=== PATIENT | male | born 1945 | race Caucasian/White ===

== ENCOUNTER 2020-06-14 11:07 | Inpatient (IN) | payer OTHER ==
[~2020-06-14] VITALS: Ht 172.7 cm; Wt 71.2 kg
[2020-06-14] MEDS ORDERED: DEXAMETHASONE SOD PHOSPHATE 10 MG/ML VIAL IV ONE (11:30)
[2020-06-14] MEDS ORDERED: DEXAMETHASONE SOD PHOSPHATE 10 MG/ML VIAL ONE (11:31)
[2020-06-14 11:38] LABS: ABG BASE EXCESS -2.3 mmol/L; ABG PCO2 29.7 mmHg (35.0-45.0); ABG PH 7.451 (7.350-7.450); ABG PO2 50.4 mmHg (75.0-100.0); AaDO2 632.9 mmHg; MetHb 0.3 % (0.0-1.5); O2Hb 83.9 % (94.0-97.0); SITE, ABG Right Radial; VENT MODE, BG NRB
--- NOTE | 2020-06-14 11:45 | NUR ---
BIB [facility] C/O SOB X 2 WEEKS. vs checked. hooked on monitor seen by md. iv access started blood draw done sent to lab
--- NOTE | 2020-06-14 12:00 | NUR ---
placed on hi flow o2 rt by bedside
[2020-06-14 12:12] LABS: BASOPHILS % (AUTO) 0.1 % (0.0-2.0); EOSINOPHILS % (AUTO) 0.1 % (0.0-6.0); HEMATOCRIT 50 % (39-51); LYMPHOCYTES # (AUTO) 0.5 /CMM (0.8-4.8); LYMPHOCYTES % (AUTO) 2.2 % (20.0-44.0); MEAN CORPUSCULAR HGB CONC 32 g/dl (31.0-36.0); MEAN CORPUSCULAR VOLUME 93 fL (80-96); MONOCYTES # (AUTO) 0.9 /CMM (0.1-1.30); MONOCYTES % (AUTO) 4.4 % (2.0-12.0); NEUTROPHILS # (AUTO) 20.1 /CMM (1.8-8.9); NEUTROPHILS % (AUTO) 93.2 % (43.0-81.0); PLATELET COUNT (AUTO) 203 /CMM (150-450); RED BLOOD CELL COUNT(AUTO) 5.35 MIL/uL (4.5-6.0); WHITE BLOOD COUNT (AUTO) 21.6 K/uL (4.3-11.0)
[2020-06-14 12:45] LABS: CALCIUM, SERUM 8.3 mg/dL (8.5-10.1); CARBON DIOXIDE 23 mmol/L (21-32); CHLORIDE 104 mmol/L (98-107); CREATININE 1.5 mg/dL (0.6-1.3); GLUCOSE 244 mg/dL (74-106); POTASSIUM 5.1 mmol/L (3.5-5.1); SODIUM SERUM 139 mmol/L (136-145); UREA NITROGEN, BLOOD 24 mg/dL (7-18)
[2020-06-14 12:47] LABS: ALANINE AMINOTRANSFERASE 13 U/L (12-78); ALBUMIN 1.8 g/dL (3.4-5.0); ALKALINE PHOSPHATASE 124 U/L (46-116); ASPARTATE AMINOTRANSFERASE 23 U/L (15-37); BILIRUBIN,DIRECT 0.2 mg/dL (0.0-0.2); BILIRUBIN,TOTAL 0.6 mg/dL (0.2-1.0); TOTAL PROTEIN, SERUM 8.6 g/dL (6.4-8.2)
--- NOTE | 2020-06-14 13:27 | NUR ---
received a call from the lab reagrding covid 19 result "negative".
[2020-06-14] MEDS ORDERED: ACETAMINOPHEN ES 500 MG TABLET PO PRN (15:30)
[2020-06-14] MEDS ORDERED: DEXTROSE 50%-WATER 50 ML DISP.SYRIN IV PRN (15:30)
[2020-06-14] MEDS ORDERED: Potassium Chloride 10 MEQ in IV NS 0.9% 1,000 ML IV PRN (15:30)
[2020-06-14] MEDS ORDERED: ZOLPIDEM TARTRATE 5 MG TABLET PO PRN (15:30)
[2020-06-14] MEDS ORDERED: ENOXAPARIN SODIUM 40 MG/0.4 ML DISP.SYRIN SQ SCH (16:00)
[2020-06-14] MEDS ORDERED: IV 1/2NS 1000 ML 1,000 ML IV SCH (16:00)
[2020-06-14] MEDS ORDERED: PANTOPRAZOLE 40 MG TABLET.DR PO ONE (16:18)
[2020-06-14] MEDS ORDERED: ENOXAPARIN SODIUM 40 MG/0.4 ML DISP.SYRIN SQ ONE (16:18)
[2020-06-14] MEDS: PANTOPRAZOLE 40 MG TABLET.DR PO SCH (16:30)
[2020-06-14] MEDS: BLOOD SUGAR DIAGNOSTIC 1 EACH STRIP VI SCH ×2 (18:00→22:24)
[2020-06-14] MEDS ORDERED: REMDESIVIR (CHARGED) 200 MG, *LOADING DOSE 1 EA in IV NS 0.9% 210 ML IV ONE (18:00)
[2020-06-14] MEDS: INSULIN REGULAR, HUMAN 100 UNIT/ML 3 ML VIAL SQ PRN (18:02)
[2020-06-14 19:54] LABS: BILIRUBIN,URINE SMALL (NEGATIVE); COLOR,URINE YELLOW (YELLOW); LEUKOCYTE ESTERASE ,URINE Negative (NEGATIVE); NITRITE, URINE Negative (NEGATIVE); PROTEIN,URINE 30 mg/dl (NEGATIVE); UGLUCOSE 500 MG/DL mg/dL (NEGATIVE); UROBILINOGEN,URINE 0.2 EU/dL (0.2)
[2020-06-14 19:59] LABS: BACTERIA,URINE Few /HPF (None Seen); RBC,URINE 0-2 /HPF (0-2); SQUAMOUS EPITHELIAL CELL,UR Few /HPF (None Seen); YEAST,URINE Few /HPF (None Seen)
[2020-06-14] MEDS: *INSULIN REGULAR(HUMULIN R)HUM 100 UNIT/ML VIAL SQ PRN (22:29)
[2020-06-15] VITALS (25 sets, daily range): BP systolic 106–140; BP diastolic 56–74
[2020-06-15] MEDS ORDERED: IV 1/2NS 1000 ML 1,000 ML IV PRN (02:30)
--- NOTE | 2020-06-15 02:54 | NUR ---
PATIENT IS REPOSITIONED UP IN THE BED. PATIENT IS AAXO4. NO SOB .BREATHING EVENLY AND UNLABORED ON 60L AND 100% FIO2 OF HI-NERI AND NON-REBREATHER. PATIENT IS CONNECTED TO THE TELECOMMUNICATIONS NETWORK PLANNER. CALL LIGHT IS WITHIN REACH. PATIENT'S BED AT THE LOWEST POSITION. URINAL AT BEDSIDE FOR EMERGENCY. WILL CONTINUE TO MONITOR THE PATIENT VERY CLOSELY.
--- NOTE | 2020-06-15 03:09 | NUR ---
D-DIMER NOTED TO BE >35.20, LEFT AJ MESSAGE.
--- NOTE | 2020-06-15 03:38 | NUR ---
PATIENT IS AAOX4. AROUSED FROM SLEEP. PATIENT'S URINAL IS EMPTIED WITH 325 IN THE URINE. PATIENT IS BREATHING EVENLY AND UNLABORED ON NON-REBREATHER AND HI-FLOW OXYGEN. PATIENT'S CALL LIGHT IS WITHIN REACH. BED AT THE LOWEST POSITION. WILL CONTINUE TO MONITOR CLOSELY.
--- NOTE | 2020-06-15 04:28 | NUR ---
PATIENT IS AAOX4. NO SOB .BREATHING EVENLY AND UNLABORED ON HI-FLOW AND NONREBREATHER. PATIENT IS TOLERATING OXYGEN WELL. PATIENT IS PLACED ON HIGH-ROY'S POSITION.
[2020-06-15 04:41] LABS: BASOPHILS # (AUTO) 0.1 /CMM (0.0-0.2); BASOPHILS % (AUTO) 0.3 % (0.0-2.0); HEMATOCRIT 44 % (39-51); HEMOGLOBIN 14.1 g/dL (13.5-17.5); LYMPHOCYTES # (AUTO) 0.7 /CMM (0.8-4.8); LYMPHOCYTES % (AUTO) 3.8 % (20.0-44.0); MEAN CORPUSCULAR HGB CONC 32 g/dl (31.0-36.0); MEAN CORPUSCULAR VOLUME 93 fL (80-96); MONOCYTES # (AUTO) 0.7 /CMM (0.1-1.30); MONOCYTES % (AUTO) 3.9 % (2.0-12.0); NEUTROPHILS # (AUTO) 15.7 /CMM (1.8-8.9); PLATELET COUNT (AUTO) 167 /CMM (150-450); RED BLOOD CELL COUNT(AUTO) 4.72 MIL/uL (4.5-6.0)
[2020-06-15 04:53] LABS: ALBUMIN 1.6 g/dL (3.4-5.0); BILIRUBIN,TOTAL 0.3 mg/dL (0.2-1.0); CALCIUM, SERUM 7.9 mg/dL (8.5-10.1); CREATININE 1.3 mg/dL (0.6-1.3); POTASSIUM 5.1 mmol/L (3.5-5.1); TOTAL PROTEIN, SERUM 7.4 g/dL (6.4-8.2)
[2020-06-15 05:25] LABS: C-REACTIVE PROTEIN 34.6 mg/dL (0.0-0.9)
[2020-06-15] MEDS ORDERED: IOHEXOL-350 100 ML VIAL IV ONE (05:29)
[2020-06-15] MEDS ORDERED: CT SWABBABLE VALVE TRANS SET 1 EA INFUS.SET MC ONE (05:29)
--- NOTE | 2020-06-15 06:00 | NUR ---
patient returned from CT-Pulmonary Angiogram
--- NOTE | 2020-06-15 06:11 | NUR ---
MD ROCHA MESSAGED REGARDING CRITICAL READING OF CT PULMONARY ANGIOGRAM.
--- NOTE | 2020-06-15 07:38 | NUR ---
REPORT GIVEN MARIETTA DIEGO FOR CANDELARIA. GOING TO ROOM 263 INSTEAD.
--- NOTE | 2020-06-15 08:20 | NUR ---
RN NOTES RECIVIED PT FROM ER , A/OX4, ON HIGH FLOW O2 AND NONREBREATHING MASK, O2 SAT IN HIGH 80'S , R AC AND LEFT FA IV SITE CLEAN DRY AND INTACT, IVF 1/2NS AT 100CC/HR INFUSING, SR UP X3, CALL LIGHT WITHIN EASY REACH, BED LOCKED AND IN LOWEST POSITION, CONTINUE TO MONITOR .
--- NOTE | 2020-06-15 08:21 | NUR ---
PT TRANSPORTED TO [facility] AND RN AT BEDSIDE W/ ACLS PROTOCOL. NAD NOTED DURING TRANSPORT.
[2020-06-15] MEDS: PANTOPRAZOLE 40 MG TABLET.DR PO SCH (08:34)
[2020-06-15] MEDS: APIXABAN 5 MG TABLET PO SCH ×3 (08:35→16:20)
[2020-06-15] MEDS: DEXAMETHASONE SOD PHOSPHATE 10 MG/ML VIAL IV SCH (08:35)
[2020-06-15] MEDS: BLOOD SUGAR DIAGNOSTIC 1 EACH STRIP VI SCH ×4 (08:37→22:34)
[2020-06-15] MEDS ORDERED: HOME MED MISCELLANEOUS XX SCH (12:00)
[2020-06-15] MEDS: INSULIN GLARGINE, 100 UNIT/ML CARTRIDGE SQ SCH (12:02)
[2020-06-15] MEDS: METFORMIN 500 MG TABLET PO SCH (16:20)
[2020-06-15] MEDS: *INSULIN REGULAR(HUMULIN R)HUM 100 UNIT/ML VIAL SQ PRN (17:42)
[2020-06-15] MEDS: REMDESIVIR (CHARGED) 100 MG in IV NS 0.9% 100 ML IV SCH (18:03)
--- NOTE | 2020-06-15 18:34 | NUR ---
RN NOTES O2 SAT WNL, NO DISTRESS NOTED, PT STILL ON HIGH FLOW O2 AND NONREBREATHING MASK, O2 SAT WNL, WILL ENDORSE TO HIMS MANAGER NURSE FOR CONTINUITY CARE
--- NOTE | 2020-06-15 19:30 | NUR ---
SLAB PULLER NOTES RECEIVED PATIENT IN BED, AWAKE, A/O X3, GREENLANDIC SPEAKING, ABLE TO VERBALIZE NEEDS. ON O2 VIA HFNC 60LPM 100 % FIO2, WITH NRM @ 15LPM ON TOP, SPO2 92% AT THIS TIME. PLAN OF CARE DISCUSSED WITH THE PATIENT, WHOM VERBALIZES UNDERSTANDING. WILL MONITOR THE PATIENT CLOSELY
[2020-06-15] MEDS: INSULIN REGULAR, HUMAN 100 UNIT/ML 3 ML VIAL SQ PRN (22:47)
[2020-06-16] VITALS (24 sets, daily range): BP systolic 91–134; BP diastolic 48–67
[2020-06-16 04:25] LABS: BASOPHILS # (AUTO) 0.1 /CMM (0.0-0.2); BASOPHILS % (AUTO) 0.3 % (0.0-2.0); HEMATOCRIT 44 % (39-51); HEMOGLOBIN 14.3 g/dL (13.5-17.5); LYMPHOCYTES # (AUTO) 0.3 /CMM (0.8-4.8); LYMPHOCYTES % (AUTO) 1.7 % (20.0-44.0); MEAN CORPUSCULAR HGB CONC 33 g/dl (31.0-36.0); MEAN CORPUSCULAR VOLUME 91 fL (80-96); MONOCYTES # (AUTO) 0.8 /CMM (0.1-1.30); MONOCYTES % (AUTO) 3.9 % (2.0-12.0); NEUTROPHILS # (AUTO) 19.1 /CMM (1.8-8.9); NEUTROPHILS % (AUTO) 94.1 % (43.0-81.0); PLATELET COUNT (AUTO) 172 /CMM (150-450); RED BLOOD CELL COUNT(AUTO) 4.82 MIL/uL (4.5-6.0); WHITE BLOOD COUNT (AUTO) 20.3 K/uL (4.3-11.0)
[2020-06-16 04:36] LABS: ALBUMIN 1.6 g/dL (3.4-5.0); BILIRUBIN,DIRECT 0.2 mg/dL (0.0-0.2); BILIRUBIN,TOTAL 0.4 mg/dL (0.2-1.0)
[2020-06-16 04:40] LABS: ALBUMIN 1.7 g/dL (3.4-5.0); BILIRUBIN,TOTAL 0.6 mg/dL (0.2-1.0); CALCIUM, SERUM 8.2 mg/dL (8.5-10.1); CREATININE 1.2 mg/dL (0.6-1.3); POTASSIUM 4.7 mmol/L (3.5-5.1); TOTAL PROTEIN, SERUM 7.1 g/dL (6.4-8.2)
[2020-06-16 04:53] LABS: C-REACTIVE PROTEIN 15.8 mg/dL (0.0-0.9)
--- NOTE | 2020-06-16 06:30 | NUR ---
LEARNING SPECIALIST NOTES PATIENT REMAINS LAYING IN BED, KEPT COMFORTABLE THROUGHOUT SHIFT. CONTINUES ON HFNC @ 60LPM, FIO2 100% WITH NRM @ 15LPM ON TOP, SPO2 89-92%. WILL ENDORSE PATIENT TO THE AM SHIFT NURSE FOR CANDELARIA
[2020-06-16] MEDS ORDERED: AMLODIPINE BESYLATE 5 MG TABLET PO SCH (09:00)
[2020-06-16] MEDS: ASPIRIN 81 MG TAB.CHEW PO SCH (10:33)
[2020-06-16] MEDS: LISINOPRIL (10MG) 10 MG TABLET PO SCH (10:34)
[2020-06-16] MEDS: ATORVASTATIN 10 MG TABLET PO SCH (10:34)
[2020-06-16] MEDS: DEXAMETHASONE SOD PHOSPHATE 10 MG/ML VIAL IV SCH (10:35)
[2020-06-16] MEDS: PANTOPRAZOLE 40 MG TABLET.DR PO SCH (10:35)
[2020-06-16] MEDS: LINAGLIPTIN 5 MG TABLET PO SCH (10:35)
[2020-06-16] MEDS: METFORMIN 500 MG TABLET PO SCH ×2 (10:35→17:00)
[2020-06-16] MEDS: APIXABAN 5 MG TABLET PO SCH ×2 (10:36→18:30)
[2020-06-16] MEDS: BLOOD SUGAR DIAGNOSTIC 1 EACH STRIP VI SCH ×4 (10:38→23:34)
[2020-06-16] MEDS: INSULIN GLARGINE, 100 UNIT/ML CARTRIDGE SQ SCH (10:38)
[2020-06-16] MEDS: INSULIN REGULAR, HUMAN 100 UNIT/ML 3 ML VIAL SQ PRN (12:43)
[2020-06-16] MEDS: REMDESIVIR (CHARGED) 100 MG in IV NS 0.9% 100 ML IV SCH (18:29)
--- NOTE | 2020-06-16 19:34 | NUR ---
ICU/COMMUNITY SERVICES COORDINATOR RECIEVED REPORT FROM DAY NURSE. SEE FLOWSHEET FOR ASSESSMENT.
[2020-06-16] MEDS: *INSULIN REGULAR(HUMULIN R)HUM 100 UNIT/ML VIAL SQ PRN (23:35)
[2020-06-17] VITALS (24 sets, daily range): BP systolic 96–156; BP diastolic 45–97
[2020-06-17 05:23] LABS: ALANINE AMINOTRANSFERASE 9 U/L (12-78); ALBUMIN 1.5 g/dL (3.4-5.0); ALKALINE PHOSPHATASE 127 U/L (46-116); ASPARTATE AMINOTRANSFERASE 27 U/L (15-37); BILIRUBIN,DIRECT 0.3 mg/dL (0.0-0.2); BILIRUBIN,TOTAL 0.6 mg/dL (0.2-1.0); CALCIUM, SERUM 8.1 mg/dL (8.5-10.1); CARBON DIOXIDE 20 mmol/L (21-32); CHLORIDE 104 mmol/L (98-107); CREATININE 1.2 mg/dL (0.6-1.3); GLUCOSE 167 mg/dL (74-106); POTASSIUM 4.6 mmol/L (3.5-5.1); SODIUM SERUM 136 mmol/L (136-145); TOTAL PROTEIN, SERUM 6.8 g/dL (6.4-8.2); UREA NITROGEN, BLOOD 38 mg/dL (7-18)
[2020-06-17 07:50] LABS: BASOPHILS % (AUTO) 0.2 % (0.0-2.0); HEMATOCRIT 44 % (39-51); HEMOGLOBIN 14.2 g/dL (13.5-17.5); LYMPHOCYTES # (AUTO) 0.4 /CMM (0.8-4.8); LYMPHOCYTES % (AUTO) 2.1 % (20.0-44.0); MEAN CORPUSCULAR HGB CONC 32 g/dl (31.0-36.0); MEAN CORPUSCULAR VOLUME 92 fL (80-96); MONOCYTES # (AUTO) 0.6 /CMM (0.1-1.30); MONOCYTES % (AUTO) 3.2 % (2.0-12.0); NEUTROPHILS % (AUTO) 94.5 % (43.0-81.0); PLATELET COUNT (AUTO) 138 /CMM (150-450); RED BLOOD CELL COUNT(AUTO) 4.83 MIL/uL (4.5-6.0)
[2020-06-17] MEDS: METFORMIN 500 MG TABLET PO SCH ×2 (08:19→16:38)
[2020-06-17] MEDS: ASPIRIN 81 MG TAB.CHEW PO SCH (08:19)
[2020-06-17] MEDS: PANTOPRAZOLE 40 MG TABLET.DR PO SCH (08:19)
[2020-06-17] MEDS: LINAGLIPTIN 5 MG TABLET PO SCH (08:20)
[2020-06-17] MEDS: ATORVASTATIN 10 MG TABLET PO SCH (08:20)
[2020-06-17] MEDS: AMLODIPINE BESYLATE 5 MG TABLET PO SCH (08:20)
[2020-06-17] MEDS: LISINOPRIL (10MG) 10 MG TABLET PO SCH (08:21)
[2020-06-17] MEDS: APIXABAN 5 MG TABLET PO SCH ×2 (08:22→16:38)
[2020-06-17] MEDS: DEXAMETHASONE SOD PHOSPHATE 10 MG/ML VIAL IV SCH (08:23)
[2020-06-17] MEDS: INSULIN GLARGINE, 100 UNIT/ML CARTRIDGE SQ SCH (08:25)
[2020-06-17] MEDS: BLOOD SUGAR DIAGNOSTIC 1 EACH STRIP VI SCH ×4 (08:28→21:20)
[2020-06-17] MEDS: INSULIN REGULAR, HUMAN 100 UNIT/ML 3 ML VIAL SQ PRN (08:28)
[2020-06-17 09:27] LABS: ABG BASE EXCESS -3.7 mmol/L; ABG OXYGEN SATURATION 87.9 % (92.0-98.5); ABG PCO2 30.8 mmHg (35.0-45.0); ABG PO2 53.3 mmHg (75.0-100.0); AaDO2 628.9 mmHg; COHb 1.2 % (0.5-1.5); MetHb 0.3 % (0.0-1.5); O2Hb 86.6 % (94.0-97.0); SITE, ABG Right Radial; VENT MODE, BG HFNC 100%+NRB MSK
--- NOTE | 2020-06-17 11:00 | NUR ---
RN NOTES DR ROCHA NOTIFED REGARDING LA 2.2
[2020-06-17] MEDS: REMDESIVIR (CHARGED) 100 MG in IV NS 0.9% 100 ML IV SCH (17:07)
--- NOTE | 2020-06-17 18:44 | NUR ---
RN NOTES PT REMAINS ON HIGH FLOW AND NONREBREATHING MASK, VSS STABLE, NO SIGNIFICANT CHANGES NOTED ON THIS SHIFT, WILL ENDOSE TO NANOTECHNOLOGY ENGINEERING TECHNICIAN NURSE FOR CONTINUITY OF CARE .
--- NOTE | 2020-06-17 19:30 | NUR ---
RN OPENING NOTES RECEIVED PT IN BED, A/O X4 PUERTO RICAN SPEAKING PRIMARILY, MINIMAL ENGHLISH ABLE TO MAKE NEEDS KNOWN. WPT ON HIGH FLOW AT 60l FIO2 100% AND NONREBREATHER MASK AT 15L. TOLERATING WELL. SATURATING AT 89% NO S/S OF RESP DISTRESS. ON CARDIAC MONITORING PT BASELINE NSR HR OF 89 AT THIS TIME. IV SITES FLUSHED ASEPTICALLY. PT IS ABLE TO USE URINAL. SAFETY MEASURES IN PLACE, HOB ELEVATED. SIDE RAILS UP X3 BED LOCKED IN LOWEST POSITION WILL CONT TO MONITOR.
--- NOTE | 2020-06-17 22:00 | NUR ---
SPOKE WITH PARAG, DAUGHTER UPDATE FOR PT, ASKED TO HELP ENCOURAGE PO INTAKE, WILL CONT TO MONITOR
[2020-06-17] MEDS: *INSULIN REGULAR(HUMULIN R)HUM 100 UNIT/ML VIAL SQ PRN (22:21)
[2020-06-18] VITALS (24 sets, daily range): BP systolic 37–178; BP diastolic 22–87
[2020-06-18 05:45] LABS: ALANINE AMINOTRANSFERASE 10 U/L (12-78); ALBUMIN 1.5 g/dL (3.4-5.0); ALKALINE PHOSPHATASE 136 U/L (46-116); ASPARTATE AMINOTRANSFERASE 30 U/L (15-37); BILIRUBIN,DIRECT 0.4 mg/dL (0.0-0.2); BILIRUBIN,TOTAL 0.7 mg/dL (0.2-1.0); CALCIUM, SERUM 8.2 mg/dL (8.5-10.1); CARBON DIOXIDE 22 mmol/L (21-32); CHLORIDE 104 mmol/L (98-107); CREATININE 1.2 mg/dL (0.6-1.3); GLUCOSE 154 mg/dL (74-106); POTASSIUM 4.9 mmol/L (3.5-5.1); SODIUM SERUM 135 mmol/L (136-145); TOTAL PROTEIN, SERUM 6.8 g/dL (6.4-8.2); UREA NITROGEN, BLOOD 38 mg/dL (7-18)
--- NOTE | 2020-06-18 07:12 | NUR ---
RN CLOSING NOTES NO CHANGE IN PATIENT CONDITION. OXYGEN SETTINGS, NO SOB OR RESP DISTRESS AT THIS TIME. PT IS STILL NSR HR OF 80. TOLERATING HIGH FLOW AND NONRB MASK. SATURATION IS 88% AND UP. BASELINE 90%. PT USES URINAL. ENCOURAGE ORAL INTAKE. SAFETY MEASURES IN PLACE HOB ELEVATED. BED LOCKED IN LOWEST POSITION WITH BED ALARM ON. SIDE RAILS UP X3. WILL ENDORSE TO AM NURSE FOR CONT OF CARE
--- NOTE | 2020-06-18 07:30 | NUR ---
RN OPENING NOTE PT IN BED SEMIFOWLER'S ON HIGH FLOW O2 60LPM, FIO2 100% WITH NRB 15LPM. NO SIGNS OF RESP DISTRESS OR SOB, BREATHING UNLABORED AND EVEN. PT A/Ox4. ALL IV ACCESS SITES INTACT AND PATENT, NO SIGNS OF INFILTRATION OR INFECTION. ALL PT SAFETY PRECAUTIONS IN PLACE. WILL CONTINUE TO MONITOR.
[2020-06-18] MEDS: METFORMIN 500 MG TABLET PO SCH (09:00)
[2020-06-18] MEDS: BLOOD SUGAR DIAGNOSTIC 1 EACH STRIP VI SCH ×3 (09:17→17:53)
[2020-06-18] MEDS: ASPIRIN 81 MG TAB.CHEW PO SCH (10:15)
[2020-06-18] MEDS: APIXABAN 5 MG TABLET PO SCH (10:18)
[2020-06-18] MEDS: LISINOPRIL (10MG) 10 MG TABLET PO SCH (10:22)
[2020-06-18] MEDS: AMLODIPINE BESYLATE 5 MG TABLET PO SCH (10:22)
[2020-06-18] MEDS: LINAGLIPTIN 5 MG TABLET PO SCH (10:23)
[2020-06-18] MEDS: PANTOPRAZOLE 40 MG TABLET.DR PO SCH (10:23)
[2020-06-18] MEDS: ATORVASTATIN 10 MG TABLET PO SCH (10:23)
[2020-06-18] MEDS: DEXAMETHASONE SOD PHOSPHATE 10 MG/ML VIAL IV SCH (10:24)
[2020-06-18] MEDS: INSULIN GLARGINE, 100 UNIT/ML CARTRIDGE SQ SCH (10:25)
[2020-06-18] MEDS: INSULIN REGULAR, HUMAN 100 UNIT/ML 3 ML VIAL SQ PRN (13:59)
[2020-06-18] MEDS ORDERED: PROPOFOL 100 ML IV PRN ×2 (14:30→16:30)
--- NOTE | 2020-06-18 15:30 | NUR ---
RN NOTE PT INTUBATED
--- NOTE | 2020-06-18 16:15 | NUR ---
RT NOTE: LATE ENTRY @1530-PATIENT ORALLY INTUBATED BY DR. SIOBHAN GALVAN WITH 7.0 ETT SECURED AT 23 CM MID LIP LINE. BILATERAL B/S NOTED. PATIENT PLACED ON MECHANICAL VENT WITH SETTINGS PER . SUCTIONED AND LAVAGED WITH SCANT SECRETIONS. @1600- ETT PUSHED IN 2CM PER .
--- NOTE | 2020-06-18 16:56 | NUR ---
RT NOTE:LATE ENTRY @1624-PEEP INCREASED TO 12 PER . @1637-PEEP INCREASED TO 14 PER . @1653-PEEP INCREASED TO 16 PER .
--- NOTE | 2020-06-18 17:20 | NUR ---
JOHNATHON HUDSON PT CODED AT 1708. SUCCESSFUL RESUSCITATION ATTEMPT. WILL CONTINUE TO MONITOR CLOSELY Addendum: 06/18/20 at 2159 by GERMAN COREAS RN PROPOFOL STOPPED AT 1700
--- NOTE | 2020-06-18 17:30 | NUR ---
RN NOTE SPOKE WITH PARAG (DAUGHTER- [phone]) REGARDING PT'S CONDITION AND STATUS. ALL QUESTIONS ANSWERED TO HER SATISFACTION
--- NOTE | 2020-06-18 17:39 | NUR ---
DR OSMAN NOTIFIED OF PT'S CODE AND THAT ER DR GALVAN TALKED TO PATIENT DAUGHTER PARAG. DR. ROCHA NOTIFIED, ORDERS GIVEN FOR BOLUS AND LEVOPHED FOR LOW BP.
[2020-06-18] MEDS ORDERED: IV NS 0.9% 500 ML IV ONE (18:00)
[2020-06-18] MEDS: NOREPINEPHRINE 8 MG in IV NS 0.9% 242 ML IV PRN ×2 (18:08→20:15)
[2020-06-18] MEDS: REMDESIVIR (CHARGED) 100 MG in IV NS 0.9% 100 ML IV SCH (18:17)
[2020-06-18 18:24] LABS: ABG BASE EXCESS -19.7 mmol/L; ABG PCO2 78.1 mmHg (35.0-45.0); ABG PH 6.886 (7.350-7.450); ABG PO2 59.2 mmHg (75.0-100.0); AaDO2 575.7 mmHg; COHb 0.8 % (0.5-1.5); MetHb 0.3 % (0.0-1.5); O2Hb 70.2 % (94.0-97.0); PEEP,BG 16 cm H2O; SITE, ABG Right Brachial; VT, ABG 500 mL
[2020-06-18] MEDS ORDERED: SUCCINYLCHOLINE CHLORIDE 20 MG/ML VIAL IV ONE (18:25)
[2020-06-18] MEDS ORDERED: ETOMIDATE 2 MG/ML VIAL IV ONE (18:25)
--- NOTE | 2020-06-18 18:39 | NUR ---
RN NOTE NOREPI TITRATED TO 1.0 PER RN [place] AND PT'S BP
--- NOTE | 2020-06-18 19:00 | NUR ---
RN CLOSING NOTE PT VENT SETTINGS: TRACH AT 25CM AT THE LIP, ETT 7.0, AC 32, TV 550, FIO2 100% AND PEEP OF 16. PT IS ON NOREPI AND WAS GIVEN BOLUS NS PRIOR TO NOREPI. PT IN BETTER CONDITION. ALL PT SAFETY MEASURES IN PLACE. WILL ENDORSE CANDELARIA TO ONCOMING NURSE
[2020-06-18] MEDS ORDERED: ENOXAPARIN SODIUM 80 MG/0.8 ML DISP.SYRIN SQ SCH (19:30)
--- NOTE | 2020-06-18 19:35 | NUR ---
RN OPENING NOTES RECEIVED PT ON TRACH. AC 32 TV 550 FI02 100% PEEP 16. PTS O2 SATURATION AT 72. PER AM NURSE, ITS BEEN SATING ON 70S AND RT MADE AWARE. PT ON LEVOPHED RUNNUNG AT 1MCG/KG/MIN, NO SIGNS OF INFILTRATION. BP AT 113/64 HR [address] WITH CLEAR YELLOW URINE OUTPUT. WILL CONTINUE TO MONITOR. ALL SAFETY MEASURES IMPLEMENTED PER PROTOCOL. SIDE RAILS UP. BED LOCKED IN LOWEST POSITION.
[2020-06-18] MEDS ORDERED: FAMOTIDINE/PF INJ 20 MG/2 ML VIAL IV SCH (20:00)
[2020-06-18] MEDS ORDERED: NOREPINEPHRINE 8MG/250ML RTU 250 ML IV ONE (20:03)
[2020-06-18] MEDS ORDERED: PHENYLEPHRINE 100 MG in IV NS 0.9% 240 ML IV PRN (20:30)
[2020-06-18] MEDS ORDERED: IV NS 0.9% 1,000 ML IV ONE ×2 (20:30→20:45)
[2020-06-18] MEDS ORDERED: NOREPINEPHRINE 32 MG in IV NS 0.9% 218 ML IV PRN (20:30)
--- NOTE | 2020-06-18 20:30 | NUR ---
RN NOTES PT NOTED WITH BP 65/46 HR 85 RR 26. PT ALREADY ON LEVOPHED 1 MCG/KG/MIN. NOTIFIED DR ROCHA. ORDERED TO GIVE 1 L NS BOLUS AND IT BP STILL LOW START NEOSYNEPHRINE. CHARGE NURSE MADE AWARE. ORDERS NOTED AND CARRIED OUT.
--- NOTE | 2020-06-18 21:17 | NUR ---
RN NOTE RING SEWER NURSE SPOKE TO PT DAUGHTER PARAG, EXPLAINED PTS CURRENT CONDITION. CODE STATUS CHANGED TO DNR. MADE AWARE.
--- NOTE | 2020-06-18 22:23 | NUR ---
RN NOTES BP 56/35 HR 71. NEOSYNEPHRINE STARTED. LEVOPHED RUNNING AT 1MCG/KG/MIN
[2020-06-22] MEDS ORDERED: APIXABAN 5 MG TABLET PO SCH (09:00)
== END 2020-06-18 22:42 | disposition expired | DRG 208 ==
LOC: ER 11:11 → TRANSITION 13:51 → ICU 06-15 07:26
PROVIDERS: ADMIT Internal Medicine; ATTEND Internal Medicine
PROC: XW033E5 Introduction of Remdesivir Anti-infective into Peripheral Vein, Percutaneous Approach, New Technology Group 5 (ICD-10-PCS; principal; 2020-06-14)
PROC: 5A1935Z Respiratory Ventilation, Less than 24 Consecutive Hours (ICD-10-PCS; 2020-06-18)
PROC: 0BH18EZ Insertion of Endotracheal Airway into Trachea, Via Natural or Artificial Opening Endoscopic (ICD-10-PCS; 2020-06-18)
PROC: 5A12012 Performance of Cardiac Output, Single, Manual (ICD-10-PCS; 2020-06-18)
PROC: 02HV33Z Insertion of Infusion Device into Superior Vena Cava, Percutaneous Approach (ICD-10-PCS; 2020-06-18)
PROC: B548ZZA Ultrasonography of Superior Vena Cava, Guidance (ICD-10-PCS; 2020-06-18)
DX: U07.1 COVID-19 (principal); J96.01 Acute respiratory failure with hypoxia; J12.82 Pneumonia due to coronavirus disease 2019; I26.99 Other pulmonary embolism without acute cor pulmonale; E87.2 Acidosis; N17.9 Acute kidney failure, unspecified; J44.0 Chronic obstructive pulmonary disease with (acute) lower respiratory infection; I10 Essential (primary) hypertension; E88.09 Other disorders of plasma-protein metabolism, not elsewhere classified; E11.9 Type 2 diabetes mellitus without complications; Z87.891 Personal history of nicotine dependence; Z79.84 Long term (current) use of oral hypoglycemic drugs
CPT/HCPCS: 36415; 36600; 71045-TC; 80048-TC; 80053-TC; 80076-TC; 81001; 82728-TC; 82803-TC; 82962-TC; 83605-TC; 84484-TC; 85025-TC; 85378-TC; 85610-TC; 85730-TC; 86140-TC; 87040-TC; 87081-TC; 87086-TC; 94762-TC; 94799-TC; A4216; A4217; C9803; G0378; J0330; J1100; J1650; J1815; J2370; J3490; J7030; J7040; J7050; Q9967